=== PATIENT | male | born 1965 | race Hispanic/Latino ===

== ENCOUNTER 2023-01-25 00:50 | Emergency (ER) | payer OTHER ==
--- OUTSIDE RECORDS SUMMARY | 2023-01-25 00:55 | XMS REPORT | Continuity of Care Document ---
:1965 Author Organization [facility] t Address [address] [place] [address] [place] [id number] Care Team Providers Name Role Phone MICHEL MARTÍNEZ Primary Care Physician Unavailable GILLIAN BASILIO Attending Clinician Unavailable CATHY SOMMER Attending Clinician Unavailable [id number] Attending Clinician Unavailable CODEY BARCLAY Attending Clinician Unavailable SHILA QIU Attending Clinician Unavailable MARIBEL CHAPA Attending Clinician Unavailable [id number] Attending Clinician Unavailable Cathy Sommer MD Attending Clinician [phone] MIKE DOMINGUEZ Attending Clinician Unavailable OPAL WELLS Attending Clinician Unavailable Gillian Sims Attending Clinician Claudy West Attending Clinician NOELLE TOSCANO Attending Clinician Unavailable CLAUDY WINSTON Admitting Clinician Unavailable Payers Payer Name Policy Type Policy Number Effective Date Expiration Date S po AETNA 2 [id number] 2020 00:00:00 [employer] COMMERCIAL [id number] 2021 OUT OF NETWORK 00:00:00 Problems Condition Condition Condition Status Onset Resolution Last Treating Co mments Source Name Details Category Date Date Treatment Clinician Date DM type 2 DM type 2 Disease Active Johnathan gonzalez with with 3-26 Seybold diabetic diabetic 00:00: - mixed mixed 00 Externa hyperlipid hyperlipid l emia emia Type 2 Type 2 Disease Active Cuca diabetes diabetes 4-30 Seybol d mellitus, mellitus, 00:00: - with with 00 Externa long-term long-term l current current use of use of insulin insulin Essential Essential Disease Active Johnathan carlos hypertensi hypertensi 430 Se ybold on on 00:00: - 00 Externa l No known No known Disease Unive rs active active ity of problems problems [facility] Allergies, Adverse Reactions, Alerts Allergy Allergy Status Severity Reaction(s) Onset Inactive Treating Comm ents Source Name Type Date Date Clinician NO KNOWN Drug Active Univers ALLERGIE Class ity of S [facility] Social History Social Habit Start Date Stop Date Quantity Comments Source History SDOH Cuca atkins Alcohol Binge - External Exposure to Not sure Cuca nava SARS-CoV-2 (event) Gender identity Cuca betancur - External Sexual orientation Cuca Pena - External History SDOH Cuca atkins Alcohol Frequency - Exter nal History JADYNOH Cuca atkins Alcohol Std Drinks - Exte rnal Tobacco use and 2022-08-07 2022-08-07 Smokeless tobacco Ke chela Vasquezold exposure 00:00:00 00:00:00 non-user - External Alcohol intake 2022-08-07 2022-08-07 .57 /d Cuca romeo 00:00:00 00:00:00 - External Alcohol Comment 2020-07-15 2020-07-15 daily Cuca betancur 00:00:00 00:00:00 - External History of Social 2020-07-15 2020-07-15 Cuca Pena function 00:00:00 00:00:00 - External Sex [birth year] Cuca vicenteold 00:00:00 00:00:00 - External Smoking Status Start Date Stop Date Source Never smoked tobacco Cuca ruiz - External Unknown [facility] Ordered Filled Start Stop Current Ordering Indication Dosage Frequency Signature Comments Components Source Medication Medication Date Date Medication? Clinician (SIG) Name Name LISINOPRIL- Yes [id number] 1{tbl} Take 1 Cuca HCTZ 20-25 5-23 tablet by Seyb old MG oral 00:00: mouth - Tablet 00 daily Externa l Metformin Yes [id number] 1000mg Take 1 Cuca HCl 1000 MG 5-23 tablet Seybol d oral Tablet 00:00: (1,000 mg - 00 total) by Externa mouth in l the morning and 1 tablet (1,000 mg total) in the evening. Take with meals. Atorvastati Yes [id number] 40mg Take 1 Cuca n Calcium 5-23 tablet (40 Seyb old 40 MG oral 00:00: mg total) - Tablet 00 by mouth Externa daily l Lisinopril Yes [id number] 10mg Take 1 K elsey 10 MG oral 5-23 tablet (10 Sey bold Tablet 00:00: mg total) - 00 by mouth Externa daily Take l in addition with Lisinopril HCTZ 20-25 OZEMPIC 2022- No [id number] .25mg Inject Ke lsey (0.25 or 5-23 07-19 0.25 mg Seybold 0.5 00:00: 04:59 into the - mg/dose) 2 00 :00 skin once Exte rna mg/3 mL SQ a week l Solution Pen-Injecto r Lisinopril 2022- No [id number] 10mg Take 1 Cuca 10 MG oral 5-23 05-23 tablet (10 Se ybold Tablet 00:00: 00:00 mg total) - 00 :00 by mouth Externa daily Take l in addition with Lisinopril HCTZ 20-25 Tirzepatide 2022- No [id number] 10mg Inject 0.5 Cuca (Mounjaro) 1-27 05-23 mL (10 mg Sey bold 10 MG/0.5ML 00:00: 00:00 total) - subcutaneou 00 :00 into the Exte rna s Solution skin once l Pen-injecto a week r Empaglifloz Yes [id number] 1{tbl} Take 1 Cuca in 1-17 tablet by Seybold (Jardiance) 00:00: mouth - 25 MG oral 00 daily Externa Tablet l Hyoscyamine Yes [id number] .125mg Q4H Take 1 Cuca Sulfate 1-05 tablet Seybold 0.125 MG 00:00: (0.125 mg - oral Tablet 00 total) by Ext daniel mouth l every 4 hours as needed for cramping Hyoscyamine 0 2022- No [id number] .125mg Q4H Take 1 Cuca Sulfate 1-05 -23 tablet Seybold 0.125 MG 00:00: 00:00 (0.125 mg - oral Tablet 00 :00 total) by Ext daniel mouth l every 4 hours as needed for cramping Hyoscyamine 2022- No [id number] .125mg Q4H Take 1 Cuca Sulfate 1-05 -05 tablet Seybold 0.125 MG 00:00: 00:00 (0.125 mg - oral Tablet 00 :00 total) by Ext daniel mouth l every 4 hours as needed for cramping Cyclobenzap 2021-03 Yes [id number] 5mg Q.[id number] Take 1 Cuca rine HCl 5 2-14 [id number] tablet (5 Seybold MG oral 00:00: 3D mg total) - Tablet 00 by mouth 3 Externa times l daily as needed for muscle spasms Cyclobenzap 2021-03- No [id number] 5mg Q.[id number] Take 1 Cuca rine HCl 5 2-14 -23 [id number] tablet (5 Seybold MG oral 00:00: 00:00 3D mg total) - Tablet 00 :00 by mouth 3 Externa times l daily as needed for muscle spasms Celecoxib 2021-03 Yes [id number] 200mg Take 1 Cuca (CeleBREX) 2-09 capsule Seybol d 200 MG oral 00:00: (200 mg - Capsule 00 total) by Externa mouth 2 l times daily Celecoxib 2021-03 Yes [id number] 200mg Take 1 Cuca (CeleBREX) 2-09 capsule Seybol d 200 MG oral 00:00: (200 mg - Capsule 00 total) by Externa mouth 2 l times daily Celecoxib 2021-03- No [id number] 200mg Take 1 Cuca (CeleBREX) 04-26 capsule Seybo ld 200 MG oral 00:00: 00:00 (200 mg - Capsule 00 :00 total) by Externa mouth 2 l times daily Ozempic, 2 2021-03 Yes [id number] DIAL AND Cuca MG/DOSE, 2- INJECT Seybold subcutaneou 00:00: UNDER THE - s 00 SKIN 2 MG Externa WEEKLY l Ozempic, 2 2021-03 Yes [id number] DIAL AND Cuca MG/DOSE, 2- INJECT Seybold subcutaneou 00:00: UNDER THE - s 00 SKIN 2 MG Externa WEEKLY l Atorvastati 2021-03 Yes [id number] 40mg Take 1 Cuca n Calcium 1-07 tablet (40 Seyb old 40 MG oral 00:00: mg total) - Tablet 00 by mouth Externa daily l Atorvastati 2021-03 Yes [id number] 40mg Take 1 Cuca n Calcium 1-07 tablet (40 Seyb old 40 MG oral 00:00: mg total) - Tablet 00 by mouth Externa daily l Atorvastati 2021-03- No [id number] 40mg Take 1 Cuca n Calcium 1-07 -23 tablet (40 Sey bold 40 MG oral 00:00: 00:00 mg total) - Tablet 00 :00 by mouth Externa daily l Benzonatate 2021-03- No [id number] 200mg Q.[id number] Take 1 Cuca 200 MG oral 0-12 02-23 [id number] capsule Seybold Capsule 00:00: 00:00 3D (200 mg - 00 :00 total) by Externa mouth 3 l times daily as needed for cough Amoxicillin 2021-03 Yes [id number] 1{tbl} Take 1 Cuca -Pot 0-10 tablet by Seybold Clavulanate 00:00: mouth 2 - 875-125 MG 00 times Externa oral Tablet daily l Pseudoeph-B 2021-03 Yes [id number] 10mL Q.25D Take 10 mL Cuca romphen-DM 0-10 by mouth 4 Sey bold (Bromfed 00:00: times - DM) 30-2-10 00 daily as Exte rna MG/5ML oral needed l Syrup Amoxicillin 2021-03- No [id number] 1{tbl} Take 1 Cuca -Pot 0-10 02-23 tablet by Seybold Clavulanate 00:00: 00:00 mouth 2 - 875-125 MG 00 :00 times Externa oral Tablet daily l Pseudoeph-B 2021-03- No [id number] 10mL Q.25D Take 10 mL Cuca romphen-DM 10 02-23 by mouth 4 Se ybold (Bromfed 00:00: 00:00 times - DM) 30-2-10 00 :00 daily as Exte rna MG/5ML oral needed l Syrup Empaglifloz Yes [id number] 1{tbl} Take 1 Cuca in 25 MG 9-27 tablet by Seybol d oral Tablet 00:00: mouth - 00 daily Externa l Metformin Yes [id number] 1000mg Take 1 Cuca HCl 1000 MG 9-27 tablet Seybol d oral Tablet 00:00: (1,000 mg - 00 total) by Externa mouth in l the morning and 1 tablet (1,000 mg total) in the evening. Take with meals. Empaglifloz Yes [id number] 1{tbl} Take 1 Cuca in 25 MG 9-27 tablet by Seybol d oral Tablet 00:00: mouth - 00 daily Externa l Metformin Yes [id number] 1000mg Take 1 Cuca HCl 1000 MG 9-27 tablet Seybol d oral Tablet 00:00: (1,000 mg - 00 total) by Externa mouth in l the morning and 1 tablet (1,000 mg total) in the evening. Take with meals. Empaglifloz Yes [id number] 1{tbl} Take 1 Cuca in 25 MG 9-27 tablet by Seybol d oral Tablet 00:00: mouth - 00 daily Externa l Metformin Yes [id number] 1000mg Take 1 Cuca HCl 1000 MG 9-27 tablet Seybol d oral Tablet 00:00: (1,000 mg - 00 total) by Externa mouth in l the morning and 1 tablet (1,000 mg total) in the evening. Take with meals. Metformin 2022- No [id number] 1000mg Take 1 Cuca HCl 1000 MG 9-27 05-23 tablet Seybo ld oral Tablet 00:00: 00:00 (1,000 mg - 00 :00 total) by Externa mouth in l the morning and 1 tablet (1,000 mg total) in the evening. Take with meals. OZEMPIC (1 Yes [id number] 1mg Inject 1 Cuca mg/dose) 4 9-14 mg into Seybol d mg/3 mL SQ 00:00: the skin - Solution 00 once a Externa Pen-Injecto week l r Nystatin 2021- No [id number] Apply to Cuca [id number] 10-23 10-10 affected Seybold UNIT/GM 00:00: 00:00 area twice - apply 00 :00 daily Externa externally l Cream Fluconazole 2021- No [id number] 200mg Take 1 Cuca 200 MG oral 10-23 10-10 tablet Seybo ld Tablet 00:00: 00:00 (200 mg - 00 :00 total) by Externa mouth once l a week Continuous Yes [id number] USE K elsey Blood Gluc 8-05 DIRECTED Seybo ld Sensor 00:00: TO CHECK - (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 a Jens 14 BLOOD l Day Sensor) SUGAR EACH does not MORNING apply Misc Continuous Yes [id number] USE K elsey Blood Gluc 8-05 DIRECTED Seybo ld Sensor 00:00: TO CHECK - (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 a Jens 14 BLOOD l Day Sensor) SUGAR EACH does not MORNING apply Misc Continuous Yes [id number] USE K elsey Blood Gluc 8-05 DIRECTED Seybo ld Sensor 00:00: TO CHECK - (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 a Jens 14 BLOOD l Day Sensor) SUGAR EACH does not MORNING apply Misc Continuous Yes [id number] USE K elsey Blood Gluc 8-05 DIRECTED Seybo ld Sensor 00:00: TO CHECK - (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 a Jens 14 BLOOD l Day Sensor) SUGAR EACH does not MORNING apply Misc LISINOPRIL- Yes [id number] 1{tbl} Take 1 Cuca HCTZ 20-25 7-11 tablet by Seyb old MG oral 00:00: mouth - Tablet 00 daily Externa l LISINOPRIL- 0 Yes [id number] 1{tbl} Take 1 Cuca HCTZ 20-25 7-11 tablet by Seyb old MG oral 00:00: mouth - Tablet 00 daily Externa l LISINOPRIL- Yes [id number] 1{tbl} Take 1 Cuca HCTZ 20-25 7-11 tablet by Seyb old MG oral 00:00: mouth - Tablet 00 daily Externa l LISINOPRIL- 0 2022- No [id number] 1{tbl} Take 1 Cuca HCTZ 20-25 7-11 05-23 tablet by Sey bold MG oral 00:00: 00:00 mouth - Tablet 00 :00 daily Externa l Atorvastati 2021- No 40mg Take 1 Johnathan sey n Calcium 7-11 10-10 tablet (40 Sey bold 40 MG oral 00:00: 00:00 mg total) - Tablet 00 :00 by mouth Externa daily l Amoxicillin 2021- No 875mg Take 1 Ke lsey 875 MG oral 6-05 10-10 tablet Seybo ld Tablet 00:00: 00:00 (875 mg - 00 :00 total) by Externa mouth in l the morning and 1 tablet (875 mg total) in the evening. Insulin Yes [id number] Take 28 Johnathan sey Degludec 6-03 units Seybold (Tresiba 00:00: daily - FlexTouch) 00 Externa 200 UNIT/ML l subcutaneou s Solution Pen-injecto r Insulin Yes [id number] Take 28 Johnathan sey Degludec 6-03 units Seybold (Tresiba 00:00: daily - FlexTouch) 00 Externa 200 UNIT/ML l subcutaneou s Solution Pen-injecto r Insulin Yes [id number] Take 28 Johnathan sey Degludec 6-03 units Seybold (Tresiba 00:00: daily - FlexTouch) 00 Externa 200 UNIT/ML l subcutaneou s Solution Pen-injecto r Insulin Yes [id number] Take 28 Johnathan sey Degludec 6-03 units Seybold (Tresiba 00:00: daily - FlexTouch) 00 Externa 200 UNIT/ML l subcutaneou s Solution Pen-injecto r Benzonatate 0 Yes [id number] 100mg Q.[id number] Take 1 Cuca 100 MG oral 6-03 [id number] capsule Seybold Capsule 00:00: 3D (100 mg 00 total) by mouth 3 times daily as needed for cough Empaglifloz 2021-0 Yes [id number] 1{tbl} Take 1 Cuca in-metFORMI 6-03 tablet by Seclement bold N HCl 00:00: mouth in (Synjardy) 00 the 12.5-1000 morning MG oral and 1 Tablet tablet in the evening. LISINOPRIL- 0 Yes [id number] 1{tbl} Take 1 Cuca HCTZ 20-25 6-03 tablet by Seyb old MG oral 00:00: mouth Tablet 00 daily Insulin 0 Yes [id number] Take 28 Johnathan sey Degludec 6-03 units Seybold (Tresiba 00:00: daily FlexTouch) 00 200 UNIT/ML subcutaneou s Solution Pen-injecto r Dextrometho 0 Yes [id number] 10mL Q4H Take 10 mL Cuca rphan-guaiF 6-03 by mouth Seyb old ENesin 00:00: every 4 5-100 00 hours as MG/5ML oral needed for Liquid cough Lidocaine 2021-0 Yes [id number] Take 3 ml Cuca HCl 6-03 as needed Seybold (Lidocaine 00:00: every 4 Viscous 00 hours for HCl) 2 % sore mouth/throa throat. t Solution Benzonatate 0 2021- No [id number] 100mg Q.[id number] Take 1 Cuca 100 MG oral 6-03 10-10 [id number] capsule Seybold Capsule 00:00: 00:00 3D (100 mg - 00 :00 total) by Externa mouth 3 l times daily as needed for cough Dextrometho 2021-0 2021- No [id number] 10mL Q4H Take 10 mL Cuca rphan-guaiF 6-03 10-10 by mouth Sey bold ENesin 00:00: 00:00 every 4 - 5-100 00 :00 hours as Externa MG/5ML oral needed for l Liquid cough Lidocaine 2021- No [id number] Take 3 ml Cuca HCl 6-03 10-10 as needed Seybold (Lidocaine 00:00: 00:00 every 4 - Viscous 00 :00 hours for Externa HCl) 2 % sore l mouth/throa throat. 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 [employer] a Jens 2 times l [place]) daily does not (after apply meals) Device Continuous Yes [id number] 1{each} 1 each by Cuca Blood Gluc 6-01 does not Seybo ld Rn Vascular 00:00: apply - (FreeStyle 00 route 3 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 [employer] a Jens 2 times l [place]) daily does not (after apply meals) Device Continuous Yes [id number] Use as K elsey Blood Gluc 6-01 directed Seybo ld Sensor 00:00: to check (FreeStyle 00 fasting Jens 14 blood Day Sensor) sugar each does not morning apply Misc Continuous Yes [id number] 1{each} 1 each by Cuca Blood Gluc 6-01 does not Seybo ld Rn Vascular 00:00: apply (FreeStyle 00 route 3 Jens 2 times Hopkins) daily does not (after apply meals) Device OZEMPIC Yes [id number] .25mg Inject Johnathan sey (0.25 or 5-31 0.25 mg Seybold 0.5 00:00: into the mg/dose) 2 00 skin once mg/1.5 mL a week SQ Solution Pen-Injecto r Atorvastati 2021- No [id number] TAKE ONE Cuca n Calcium 08-15- TABLET BY Seyb old 40 MG oral 00:00: 00:00 MOUTH Tablet 00 :00 DAILY LISINOPRIL- 2021- No [id number] TAKE ONE Cuca HCTZ 08-15- TABLET BY Sey bold MG oral 00:00: 00:00 MOUTH Tablet 00 :00 DAILY Insulin 2021- No [id number] Take 24 Ke lsey Degludec 08-11- units Seybold (Tresiba 00:00: 00:00 daily FlexTouch) 00 :00 200 UNIT/ML subcutaneou s Solution Pen-injecto r Insulin 2021- No Inject Cuca Degludec 03-24 into the Seybol d (Tresiba 09:42: 00:00 skin FlexTouch) 03 :00 200 UNIT/ML subcutaneou s Solution Pen-injecto r Cyclobenzap Yes [id number] 10mg Q8H Take 1 Cuca rine HCl 10 - tablet (10 Se ybold MG oral 00:00: mg total) Tablet 00 by mouth every 8 hours as needed for muscle spasms Meloxicam Yes [id number] 7.5mg Take 1 Cuca 7.5 MG oral -07 tablet Seybol d Tablet 00:00: (7.5 mg 00 total) by mouth daily Cyclobenzap 2021-0 Yes [id number] 10mg Q.[id number] Take 1 Cuca rine HCl 10 - [id number] tablet (10 Seybold MG oral 00:00: 3D mg total) Tablet 00 by mouth every 8 hours as needed for muscle spasms Meloxicam 2021-0 Yes [id number] 7.5mg Take 1 Cuca 7.5 MG oral 1-07 tablet Seybol d Tablet 00:00: (7.5 mg 00 total) by mouth daily Cyclobenzap 2021- No [id number] 10mg Q.[id number] Take 1 Cuca rine HCl 10 -07 10-10 [id number] tablet (10 Seybold MG oral 00:00: 00:00 3D mg total) - Tablet 00 :00 by mouth Externa every 8 l hours as needed for muscle spasms Meloxicam 2021- No [id number] 7.5mg Take 1 Cuca 7.5 MG oral 1-07 10-10 tablet Seybo ld Tablet 00:00: 00:00 (7.5 mg - 00 :00 total) by Externa mouth l daily Insulin 0 Yes [id number] Take 24 Johnathan sey Degludec 9-21 units Seybold (Tresiba 00:00: daily FlexTouch) 00 200 UNIT/ML subcutaneou s Solution Pen-injecto r Empaglifloz Yes [id number] 1{tbl} Take 1 Cuca in-metFORMI 9-21 tablet by Sey bold N HCl 00:00: mouth 2 (Synjardy) 00 times 12.5-1000 daily MG oral Tablet Insulin Yes [id number] Take 24 Johnathan sey Degludec 9-21 units Seybold (Tresiba 00:00: daily FlexTouch) 00 200 UNIT/ML subcutaneou s Solution Pen-injecto r Empaglifloz Yes [id number] 1{tbl} Take 1 Cuca in-metFORMI 9-21 tablet by Sey bold N HCl 00:00: mouth 2 (Synjardy) 00 times 12.5-1000 daily MG oral Tablet Empaglifloz 2021- No [id number] 1{tbl} Take 1 Cuca in-metFORMI 9-21 06-03 tablet by Se ybold N HCl 00:00: 00:00 mouth 2 (Synjardy) 00 :00 times 12.5-1000 daily MG oral Tablet Benzonatate 0 Yes 100mg Q.[id number] Take 1 Cuca 100 MG oral 5-25 [id number] capsule Seybold Capsule 00:00: 3D (100 mg 00 total) by mouth 3 times daily as needed for cough Benzonatate 2020-0 Yes 100mg Q.[id number] Take 1 Cuca 100 MG oral 5-25 [id number] capsule Seybold Capsule 00:00: 3D (100 mg 00 total) by mouth 3 times daily as needed for cough Benzonatate 2020-0 2021- No 100mg Q.[id number] Take 1 Cuca 100 MG oral 5-25 06 [id number] capsule Seybold Capsule 00:00: 00:00 3D (100 mg 00 :00 total) by mouth 3 times daily as needed for cough Atorvastati Yes [id number] 40mg Take 1 Cuca n Calcium 4-30 tablet (40 Seyb old 40 MG oral 00:00: mg total) Tablet 00 by mouth daily LISINOPRIL- Yes [id number] 1{tbl} Take 1 Cuca HCTZ 20-25 4-30 tablet by Seyb old MG oral 00:00: mouth Tablet 00 daily Continuous Yes [id number] Use as K elsey Blood Gluc 4-30 directed Seybo ld Sensor 00:00: to check (FreeStyle 00 fasting Jens 14 blood Day Sensor) sugar each does not morning apply Misc Atorvastati Yes [id number] 40mg Take 1 Cuca n Calcium 4-30 tablet (40 Seyb old 40 MG oral 00:00: mg total) Tablet 00 by mouth daily LISINOPRIL- Yes [id number] 1{tbl} Take 1 Cuca HCTZ 20-25 4-30 tablet by Seyb old MG oral 00:00: mouth Tablet 00 daily Continuous Yes [id number] Use as K elsey Blood Gluc 4-30 directed Seybo ld Sensor 00:00: to check (FreeStyle 00 fasting Jens 14 blood Day Sensor) sugar each does not morning apply Misc Empaglifloz 2020- No [id number] 1{tbl} Take 1 Cuca in-metFORMI 07-15 tablet by Se ybold N HCl 00:00: 00:00 mouth 2 (Synjardy) 00 :00 times 12.5-1000 daily MG oral Tablet Insulin 2020- No [id number] Take 24 Ke lsey Degludec -15 12-21 units Seybold (Tresiba 00:00: 00:00 daily FlexTouch) 00 :00 200 UNIT/ML subcutaneou s Solution Pen-injecto r azithromyci 0 2019- No 500mg 500 mg, U nivers n 8 08-04 Oral, ity of (ZITHROMAX) 01:15: 00:45 [place]CE, 1 [place] 500 00 :00 dose, Mon Medi mima mg 10/19/19 at Branch 2015, KATARINA
Re ason for Anti-Infec tive: Documented Infection< br>Documen rin Infection Site: COVID
D uration of Therapy: Other (see Comments) empaglifloz 2019-0 Yes Take by Uni vers in-metformi 10-19 mouth 2 ity o f n 00:52: (two) [place] (SYNJARDY) 44 times Medical 5-1,000 mg daily. Branch Tab atorvastati 2019-0 Yes 20mg Take 20 mg Univers n 20 mg 10-19 by mouth ity of tablet 00:52: at [place] 44 bedtime. Medical Branch insulin 0 Yes inject Univers degludec 10-19 under the ity of (TRESIBA 00:52: skin. [place] FLEXTOUCH 44 Medical U-200 SC) Branch lisinopril- 2019-0 Yes 1{tbl} Take 1 Un bobbi hydrochloro 10-19 tablet by ity of thiazide 00:52: mouth [place] 10-12.5 mg 44 daily. Medical per tablet Branch acetaminoph 0 2020- No 1000mg 1,000 mg, Univers en 10-18- Oral, ity of (TYLENOL) 23:15: 23:01 ONCE, 1 [place] tablet 00 :00 dose, [facility] Medical 1,000 mg 10/19/19 at Branch 1815, KATARINA NaCl 0.9% 2020- No 1000mL at 999 Uni vers (NS) bolus 10-18 08- mL/hr, ity of infusion 22:15: 00:45 1,000 mL, [place] as 1,000 mL 00 :00 IV Medical Infusion, [place] ONCE, 1 dose, 10/19/19 at 1715, KATARINA azithromyci 2019-0 Yes [id number] Take 500 Univers n 8-03 mg day 1, ity of (ZITHROMAX 00:00: then 250 [place] as Z-AYSHA) 250 00 mg days 2 Medi mima mg tablet to 5. Branch Vital Signs Vital Name Observation Time Observation Value Comments Source Systolic blood 2022-08-07 19:10:00 150 mm[Hg] Cuca Seybold - pressure External Diastolic blood 2022-08-07 19:10:00 70 mm[Hg] Johnathanse y Seybold - pressure External Heart rate 2022-08-07 19:10:00 80 /min Cuca S eybold - External Body temperature 2022-08-07 19:10:00 36.11 Sana Kenzie ey Seybold - External Respiratory rate 2022-08-07 19:10:00 16 /min Kenzie ey Seybold - External Body height 2022-08-07 19:10:00 177.8 cm Cuca S eybold - External Body weight 2022-08-07 19:10:00 100.517 kg Cuca S eybold - External BMI 2022-08-07 19:10:00 31.80 kg/m2 Cuca Sheriff eybold - External Oxygen saturation in 2022-08-07 19:10:00 95 /min Cuca Seybold - Arterial blood by External Pulse oximetry Systolic blood 2022-03-22 22:26:00 138 mm[Hg] Cuca Seybold - pressure External Diastolic blood 2022-03-22 22:26:00 89 mm[Hg] Johnathanse y Seybold - pressure External Heart rate 2022-03-22 22:26:00 85 /min Cuca Sheriff eybold - External Body temperature 2022-03-22 22:26:00 36.94 Sana Kenzie ey Seybold - External Respiratory rate 2022-03-22 22:26:00 14 /min Kenzie ey Seybold - External Body height 2022-03-22 22:26:00 177.8 cm Cuca Sheriff eybold - External Body weight 2022-03-22 22:26:00 99.338 kg Cuca Sheriff eybold - External BMI 2022-03-22 22:26:00 31.42 kg/m2 Cuca Sheriff eybold - External Oxygen saturation in 2022-03-22 22:26:00 99 /min Cuca Seybold - Arterial blood by External Pulse oximetry Systolic blood 2022-02-23 15:11:00 120 mm[Hg] Cuca Seybold - pressure External Diastolic blood 2022-02-23 15:11:00 75 mm[Hg] Johnathanse y Seybold - pressure External Heart rate 2022-02-23 15:11:00 69 /min Cuca S eybold - External Body temperature 2022-02-23 15:11:00 36.61 Sana Kenzie ey Seybold - External Respiratory rate 2022-02-23 15:11:00 14 /min Kenzie ey Seybold - External Body height 2022-02-23 15:11:00 177.8 cm Cuca S eybold - External Body weight 2022-02-23 15:11:00 100.699 kg Cuca S eybold - External BMI 2022-02-23 15:11:00 31.85 kg/m2 Cuca S eybold - External Oxygen saturation in 2022-02-23 15:11:00 99 /min Cuca Seybold - Arterial blood by External Pulse oximetry Systolic blood 2021-12-25 14:32:00 124 mm[Hg] Cuca Seybold - pressure External Diastolic blood 2021-12-25 14:32:00 70 mm[Hg] Johnathan y Seybold - pressure External Heart rate 2021-12-25 14:32:00 96 /min Cuca S eybold - External Body temperature 2021-12-25 14:32:00 37 Sana Kenzie ey Seybold - External Respiratory rate 2021-12-25 14:32:00 16 /min Kenzie ey Seybold - External Body height 2021-12-25 14:32:00 177.8 cm Cuca S eybold - External Body weight 2021-12-25 14:32:00 97.977 kg Cuca S eybold - External BMI 2021-12-25 14:32:00 30.99 kg/m2 Cuca S eybold - External Body temperature 2021-08-18 15:03:00 37.06 Sana Kenzie ey Seybold Respiratory rate 2021-08-18 15:03:00 16 /min Kenzie ey Seybold Body height 2021-08-18 15:03:00 177.8 cm Cuca S eybold Body weight 2021-08-18 15:03:00 98.431 kg Cuca S eybold BMI 2021-08-18 15:03:00 31.14 kg/m2 Cuca S eybold Oxygen saturation in 2021-08-18 15:03:00 97 /min Cuca Seybold Arterial blood by Pulse oximetry Systolic blood 2021-08-18 15:03:00 170 mm[Hg] Cuca Seybold pressure Diastolic blood 2021-08-18 15:03:00 94 mm[Hg] Kelse y Seybold pressure Heart rate 2021-08-18 15:03:00 90 /min Cuca S eybold Systolic blood 2021-03-24 15:35:00 144 mm[Hg] Cuca Seybold pressure Diastolic blood 2021-03-24 15:35:00 76 mm[Hg] Kelse y Seybold pressure Heart rate 2021-03-24 15:35:00 100 /min Cuca S eybold Body temperature 2021-03-24 15:35:00 37.17 Sana Kenzie ey Seybold Respiratory rate 2021-03-24 15:35:00 16 /min Kenzie ey Seybold Body height 2021-03-24 15:35:00 177.8 cm Cuca S eybold Body weight 2021-03-24 15:35:00 100.699 kg Cuca S eybold BMI 2021-03-24 15:35:00 31.85 kg/m2 Cuca S eybold Systolic blood 2020-12-06 21:23:00 134 mm[Hg] Cuca Seybold pressure Diastolic blood 2020-12-06 21:23:00 82 mm[Hg] Kelse y Seybold pressure Heart rate 2020-12-06 21:23:00 93 /min Cuca S eybold Body temperature 2020-12-06 21:23:00 36.5 Sana Kenzie ey Seybold Respiratory rate 2020-12-06 21:23:00 20 /min Kenzie ey Seybold Body height 2020-12-06 21:23:00 177.8 cm Cuca S eybold Body weight 2020-12-06 21:23:00 96.888 kg Cuca S eybold BMI 2020-12-06 21:23:00 30.65 kg/m2 Cuca S eybold Systolic blood 2019-10-20 00:52:00 128 mm[Hg] Laquitaer lesli of pressure [facility] Diastolic blood 2019-10-20 00:52:00 84 mm[Hg] Unive rsity of pressure [facility] Heart rate 2019-10-20 00:52:00 101 /min Universi ty of [facility] Body temperature 2019-10-20 00:52:00 37.83 Sana Univ ersity of [facility] Respiratory rate 2019-10-20 00:52:00 23 /min Univ ersity of [facility] Oxygen saturation in 2019-10-20 00:52:00 96 /min University of Arterial blood by [facility] Pulse oximetry Branch Body height 2019-10-19 21:59:00 177.8 cm Universi ty of [facility] Body weight 2019-10-19 21:59:[address] [facility] BMI 2019-10-19 21:59:00 33.43 kg/m2 Universi ty [facility] Systolic blood 2019-10-20 00:52:00 128 mm[Hg] Univer sity of [facility] Diastolic blood 2019-10-20 00:52:00 84 mm[Hg] Unive rsity of [facility] Heart rate 2019-10-20 00:52:00 101 /min Universi ty of [facility] Body temperature 2019-10-20 00:52:00 37.83 Sana [facility] Respiratory rate 2019-10-20 00:52:00 23 /min [facility] Oxygen saturation in 2019-10-20 00:52:00 96 /min University of Arterial blood by [facility] Pulse oximetry Branch Body height 2019-10-19 21:59:[address] [facility] Body weight 2019-10-19 21:59:[address] [facility] BMI 2019-10-19 21:59:00 33.43 [facility] Date / Time Performed Performing Clinician Sourc e XR CHEST 1 VW COVID 2019-10-19 22:58:45 Claudy Winston [facility] LACTIC ACID WHOLE 2019-10-19 22:48:00 Claudy Winston [facility] COMP. METABOLIC PANEL 2019-10-19 22:47:00 Claudy Winston [facility] ([id number]) Medical Branch CBC WITH DIFF 2019-10-19 22:47:00 Claudy Winston [facility] COVID-19 (ID NOW 2019-10-19 22:47:00 Claudy Winston [facility] RAPID TESTING) Medical Branch CONSENT/REFUSAL FOR 2019-10-19 21:44:38 [facility] Branch TREATMENT Encounters Start End Encounter Admission Attending Care Care Encounter Source Date/Time Date/Time Type Type Clinicians Facility Department ID 2023-01-08 2023-01-08 Outpatient CUCA BASILIO [id number] Cuca 00:00:00 00:00:00 GILLIAN Seybol d 2022-12-10 2022-12-10 Outpatient CUCA SOMMER [id number] Cuca 00:00:00 00:00:00 CATHY Seybol elijah 2022-11-28 2022-11-28 Outpatient CUCA SOMMER [id number] Cuca 00:00:00 00:00:00 CATHY Seybol d 2022-11-14 2022-11-14 Outpatient CUCA SOMMER [id number] Cuca 00:00:00 00:00:00 CATHY Seybol d 2022-11-06 2022-11-06 Outpatient CUCA BASILIO [id number] Cuca 16:30:00 16:30:00 GILLIAN Seybol elijah 2022-11-01 2022-11-01 Outpatient CUCA BASILIO [id number] Cuca 14:30:00 14:30:00 GILLIAN Seybol d 2022-10-11 2022-10-11 Outpatient CUCA BASILIO [id number] Cuca 16:30:00 16:30:00 GILLIAN Seybol d 2022-10-05 2022-10-05 Outpatient LAB90 CUCA HOLM [id number] Cuca 08:10:00 08:10:00 Seybol d 2022-10-01 2022-10-01 Outpatient CUCA SOMMER [id number] Cuca 00:00:00 00:00:00 CATHY Seybol d 2022-09-25 2022-09-25 Outpatient CUCA BARCLAY [id number] Cuca 00:00:00 00:00:00 CODEY Seybol d 2022-09-25 2022-09-25 Outpatient ROSCUCA RAYMOND [id number] Cuca 00:00:00 00:00:00 CATHY Seybol d 2022-09-24 2022-09-24 Outpatient HUNDL, CUCA HOLM [id number] Cuca 00:00:00 00:00:00 GILLIAN Seybol d 2022-09-24 2022-09-24 Outpatient HUNDL, CUCA HOLM [id number] Cuca 00:00:00 00:00:00 GILLIAN Seybol d 2022-09-21 2022-09-21 Outpatient LAB90 CUCA HOLM [id number] Cuca 08:10:00 08:10:00 Seybol d 2022-09-11 2022-09-11 Outpatient LAZARUS SHILA HOLM [id number] Cuca 16:15:00 16:15:00 Seybol d 2022-09-10 2022-09-10 Outpatient AMMONLCUCA [id number] Cuca 16:30:00 16:30:00 GILLIAN Seybol d 2022-09-04 2022-09-04 Outpatient HUNDLCUCA [id number] Cuca 16:30:00 16:30:00 GILLIAN Seybol d 2022-09-01 2022-09-01 Outpatient CUCA CHAPA [id number] Cuca 00:00:00 00:00:00 MARIBEL Seybol d 2022-09-01 2022-09-01 Outpatient HUNDLCUCA [id number] Cuca 00:00:00 00:00:00 GILLIAN Seybol d 2022-08-07 2022-08-07 Outpatient HUNDL, CUCA HOLM [id number] Cuca 14:30:00 14:30:00 GILLIAN Seybol d 2022-07-11 2022-07-11 Outpatient CUCA SOMMER [id number] Cuca 00:00:00 00:00:00 CATHY Seybol d 2022-06-11 2022-06-11 Outpatient HUNDL, CUCA HOLM [id number] Cuca 08:30:00 08:30:00 GILLIAN Seybol d 2022-06-08 2022-06-08 Outpatient HUNDL, CUCA HOLM [id number] Cuca 00:00:00 00:00:00 GILLIAN Seybol d 2022-05-31 2022-05-31 Outpatient HUNDL, CUCA HOLM [id number] Cuca 00:00:00 00:00:00 GILLIAN Seybol d 2022-04-12 2022-04-12 Outpatient HUNDL, CUCA HOLM [id number] Cuca 00:00:00 00:00:00 GILLIAN Seybol d 2022-04-11 2022-04-11 Outpatient HUNDL, CUCA HOLM [id number] Cuca 00:00:00 00:00:00 GILLIAN Seybol d 2022-04-03 2022-04-03 Outpatient HUNDL, CUCA HOLM [id number] Cuca 00:00:00 00:00:00 GILLIAN Seybol d 2022-04-01 2022-04-01 Outpatient HUNDL, CUCA HOLM [id number] Cuca 00:00:00 00:00:00 GILLIAN Seybol d 2022-03-22 2022-03-22 Outpatient HUNDL, CUCA HOLM [id number] Cuca 16:30:00 16:30:00 GILLIAN Seybol d 2022-03-21 2022-03-21 Outpatient HUNDL, CUCA HOLM [id number] Cuca 00:00:00 00:00:00 GILLIAN Seybol d 2022-03-01 2022-03-01 Outpatient HUNDL, CUCA HOLM [id number] Cuca 00:00:00 00:00:00 GILLIAN Seybol d 2022-02-28 2022-02-28 Outpatient HUNDL, CUCA HOLM [id number] Cuca 00:00:00 00:00:00 GILLIAN Seybol d 2022-02-28 2022-02-28 Outpatient HUNDL, CUCA HOLM [id number] Cuca 00:00:00 00:00:00 GILLIAN Seybol d 2022-02-23 2022-02-23 Outpatient LAB90 CUCA HOLM [id number] Cuca 10:15:00 10:15:00 Seybol d 2022-02-23 2022-02-23 Outpatient ANTONIO CUCA HOLM [id number] Cuca 09:30:00 09:30:00 GILLIAN Seybol d 2022-02-23 2022-02-23 Outpatient ANTONIO CUCA HOLM [id number] Cuca 00:00:00 00:00:00 GILLIAN Seybol d 2022-02-19 2022-02-19 Outpatient ANTONIO CUCA HOLM [id number] Cuca 10:30:00 10:30:00 GILLIAN Seybol d 2022-01-19 2022-01-19 Outpatient HUNDDante CUCA HOLM [id number] Cuca 00:00:00 00:00:00 GILLIAN Seybol d 2022-01-15 2022-01-15 Outpatient ANTONIO CUCA HOLM [id number] Cuca 00:00:00 00:00:00 GILLIAN Seybol d 2021-12-27 2021-12-27 Outpatient ANTONIO CUCA HOLM [id number] Cuca 00:00:00 00:00:00 GILLIAN Seybol d 2021-12-25 2021-12-25 Outpatient QOX34-MMC CUCA HOLM [id number] Cuca 10:15:00 10:15:00 Seybol d 2021-12-25 2021-12-25 Outpatient AMMONDante CUCA HOLM [id number] Cuca 09:30:00 09:30:00 GILLIAN Seybol d 2021-11-29 2021-11-29 Outpatient ANTONIO CUCA HOLM [id number] Cuca 00:00:00 00:00:00 GILLIAN Seybol d 2021-11-27 2021-11-27 Outpatient LAB90 CUCA HOLM [id number] Cuca 08:50:00 08:50:00 Seybol d 2021-11-14 2021-11-14 Outpatient CUCA SOMMER [id number] Cuca 00:00:00 00:00:00 CATHY Seybol d 2021-10-23 2021-10-23 Office Shila Sommer [id number] Cuca 16:15:00 16:45:00 Visit Cathy Thibodeaux [id number] Se gypsy Scottogyi [id number] 2021-09-15 2021-09-15 Outpatient CUCA SOMMER [id number] Cuca 00:00:00 00:00:00 CATHY Seybol d 2021-08-30 2021-08-30 Outpatient R [facility] [id number] Univers 15:30:00 15:30:00 [id number] [facility] 2021-08-30 2021-08-30 Outpatient R ANGELICA [facility] [id number] Univers 15:30:00 15:30:00 MIKE amador [facility] 2021-08-20 2021-08-20 Outpatient CUCA WELLS [id number] Cuca 00:00:00 00:00:00 OPAL Seybol d 2021-08-18 2021-08-18 Office Shila Basilio [id number] Cuca 10:00:00 10:30:00 Visit Gillian Carlos Eduardo [id number] Se gypsy [id number] [id number] 2021-08-18 2021-08-18 Outpatient CUCA SOMMER [id number] Cuca 00:00:00 00:00:00 CATHY Seybol d 2021-08-18 2021-08-18 Outpatient CUCA SOMMER [id number] Cuca 00:00:00 00:00:00 CATHY Seybol d 2021-08-18 2021-08-18 Outpatient CUCA BASILIO [id number] Cuca 00:00:00 00:00:00 GILLIAN Seybol d 2021-08-15 2021-08-15 Outpatient CUCA BASILIO [id number] Cuca 00:00:00 00:00:00 GILLIAN Seybol d 2021-08-11 2021-08-11 Outpatient LAB90 CUCA HOLM [id number] Cuca 08:10:00 08:10:00 Seybol d 2021-08-11 2021-08-11 Outpatient ANTONIO CUCA HOLM [id number] Cuca 08:00:00 08:00:00 GILLIAN Seybol d 2021-06-29 2021-06-29 Outpatient ANTONIO CUCA HOLM [id number] Cuca 00:00:00 00:00:00 GILLIAN Seybol d 2021-06-28 2021-06-28 Outpatient ROS, CUCA HOLM [id number] Cuca 00:00:00 00:00:00 CATHY Seybol d 2021-03-24 2021-03-24 Office Shila Sommer [id number] Cuca 09:45:00 10:00:00 Visit Cathykarina Thibodeaux [id number] Se ybold Somogyi [id number] 2020-12-09 2020-12-09 Outpatient LAB90 CUCA HOLM [id number] Cuca 08:00:00 08:00:00 Seybol d 2020-12-06 2020-12-06 Office AmmonShila madison [id number] Cuca 16:21:49 16:51:49 Visit Gillian Thibodeaux [id number] Se ybold [id number] 2020-09-22 2020-09-22 Outpatient CUCA SOMMER [id number] Cuca 15:30:00 15:30:00 CATHY Seybol d 2019-10-19 2019-10-19 Emergency [facility] [id number] Univers 17:04:00 19:55:00 Claudy Sun 350.1.13.10 blanca Cabrera 4.2.7.2.686 [facility] [id number] [place] [id number] Branch 2019-10-19 2019-10-19 Emergency X [facility] ERT [id number] Univers 17:04:00 19:55:00 CLAUDY burroughs of [facility] 2019-10-19 2019-10-19 Emergency [place], [facility] [id number] 17:04:00 19:55:00 Claudy Sun [id number] [place] 4.2.7.2.686 [place] [id number] 2019-10-19 2019-10-19 Outpatient Jordan TOSCANO [facility] [id number] Univers 16:40:00 16:40:00 NOELLE burroughs of [facility] Results Test Description Test Time Test Results Result Source Comments Comments XR CHEST 1 VW Radiographic findings University of COVID 4 suspicious for [facility] 00:49:08 infection, including Bran ch COVID-19pneumonia. Disclaimer: Generally, the findings on chest imaging in COVID-19 are notspecific, and overlap with other infections, including influenza, H1N1,SARS and MERS.According to the Centers for Disease Control (CDC) and recent statement ofthe [employer], viral testing remains the only specificmethod of diagnosis. Confirmation with the viral test is required, even ifradiologic findings are suggestive of COVID-[address]. Preliminary Report Dictated by Resident: Ana Lilia Chapa MD., have reviewed this study and agree with the abovereport.EXAM: XR CHEST 1 VW COVID HISTORY: 54 years-old; Male; fever, covid exposure COMPARISON: None FINDINGS: Lungs/Pleura: Multifocal patchy airspace opacities, more prominent in theleft mid and lower lung zone. There is no pleural effusion or pneumothorax. Heart/Mediastinum: The cardiomediastinal silhouette is normal. No acute osseous structure abnormality. [facility], Radiant Results Inft User - 10/19/2019 7:50 PM CDTEXAM:XR CHEST 1 VW COVIDHISTORY: 54 years-old; Male; fever, covid exposure COMPARISON: NoneFINDINGS:Lungs/Ple ura: Multifocal patchy airspace opacities, more prominent in theleft mid and lower lung zone. There is no pleural effusion or pneumothorax.Heart/Med iastinum: The cardiomediastinal silhouette is normal.No acute osseous structure abnormality.IMPRESSION Radiographic findings suspicious for infection, including COVID-19pneumonia.Disc laimer: Generally, the findings on chest imaging in COVID-19 are notspecific, and overlap with other infections, including influenza, H1N1,SARS and MERS.According to the Centers for Disease Control (CDC) and recent statement ofthe [employer], viral testing remains the only specificmethod of diagnosis. Confirmation with the viral test is required, even ifradiologic findings are suggestive of COVID-[address]Preliminary Report Dictated by Resident: Minnie Cr, Ana Lilia Morse MD., have reviewed this study and agree with the abovereport. COVID-19 (ID NOW RAPID TESTING) 2019-10-19 23:17:00 Test Item Value Reference Range Interpretation Comme nts SARS-CoV-2 Rapid ID NOW (test code Positive Not Detected A = 29680-2) DIANNE (test code = DIANNE) ID NOW COVID-19 Assay is an isothermal nucleic acid amplification test intended for the qualitative detection of nucleic acid from SARS-CoV-2 viral RNA in nasopharyngeal (CUSTOM DESIGNER) specimens. It is used under Emergency Use Authorization (EUA) by FDA. The limit of detection (LOD) of the assay is 125 Genome Equivalents/mL. A positive result is indicative of the presence of SARS-CoV-2 RNA. ?Clinical correlation with patient history and other diagnostic information is necessary to determine patient infection status. A negative (Not Detected) result does not preclude SARS-CoV-2 infection. In patients with clinical symptoms and other tests that are consistent with SARS-CoV-2 infection, negative results should be treated as presumptive negative and a new specimen should be tested with alternative PCR molecular test. Invalid: Please collect a new specimen for repeat patient testing if clinically indicated. Lab Interpretation (test code = Abnormal 96685-2) [facility]. METABOLIC PANEL (42801)2019-10-19 23:12:00 Test Item Value Reference Range Interpretation Comments NA (test code = 137 mmol/L 135-145 3311448480) K (test code = 4.4 mmol/L 3.5-5 2406999592) CL (test code = 103 mmol/L 98-108 5546363998) CO2 TOTAL (test code = 23 mmol/L 23-31 3953270090) AGAP (test code = 2-16 4412371457) BUN (test code = 17 mg/dL 7-23 6821329227) GLUCOSE (test code = 101 mg/dL 70-110 1503645489) CREATININE (test code = 0.59 mg/dL 0.6-1.25 L 6468530991) TOTAL BILI (test code = 0.7 mg/dL 0.1-1.6 6468945116) CALCIUM (test code = 11.7 mg/dL 8.6-10.6 H 4647493322) T PROTEIN (test code = 8.2 g/dL 6.3-8.2 2701138231) ALBUMIN (test code = 4.5 g/dL 3.5-5 3751185974) ALK PHOS (test code = 75 U/L 34-122 2311355760) ALTv (test code = 38 U/L 5-50 1742-6) AST(SGOT) (test code = 39 U/L 13-40 5868059459) eGFR Calculation mL/min/1.73m2 (Non-) (test code = 5136057286) eGFR Calculation mL/min/1.73m2 () (test code = 6363473663) DIANNE (test code = DIANNE) Association of Glomerular Filtration Rate (GFR) and Staging of Kidney Disease* + --+ --+ ------+| GFR (mL/min/1.73 m2) ?| With Kidney Damage ?| ?Without Kidney Damage+ --------+ --------+ +| ?>90 ?| ?Stage one ?| ? Normal ?+ ---+ ---+ -------+| ?60-89 ?| ?Stage two ?| ? Decreased GFR ? + --+ --+ ------+| ?30-59 ?| ?Stage three ?| ? Stage three ? + --+ --+ ------+| ?15-29 ?| ?Stage four ? | ? Stage four ?+ ---+ ---+ -------+| ?<15 (or dialysis) ? ?| ?Stage five ? | ? Stage five ?+ ---+ ---+ -------+ *Each stage assumes the associated GFR level has been in effect for at least three months. ?Stages 1 to 5, with or without kidney disease, indicate chronic kidney disease. Notes: Determination of stages one and two (with eGFR >59mL/min/1.73 m2) requires estimation of kidney damage for at least three months as defined by structural or functional abnormalities of the kidney, manifested by either:Pathological abnormalities or Markers of kidney damage (including abnormalities in the composition of the blood or urine or abnormalities in imaging tests). Lab Interpretation Abnormal (test code = 57187-6) [facility] WITH [id number] 23:01:00 Test Item Value Reference Range Interpretation Comments WBC (test code = See_Comment [Automated 6690-2) message] The sy stem which generated this result transmitted reference range : 4.20 - 10.70 10*3/?L. The reference range was not used to interpret this result as normal/abnormal . RBC (test code = See_Comment [Automated 789-8) message] The sy stem which generated this result transmitted reference range : 4.26 - 5.52 10*6/?L. The reference range was not used to interpret this result as normal/abnormal . HGB (test code = 15.7 g/dL 12.2-16.4 718-7) HCT (test code = 47.0 % 38.4-49.3 4544-3) MCV (test code = 90.6 fL 81.7-95.6 787-2) MCH (test code = 30.3 pg 26.1-32.7 785-6) MCHC (test code = 33.4 g/dL 31.2-35 786-4) RDW-SD (test code = 38.7 fL 38.5-51.6 82233-0) RDW-CV (test code = 11.7 % 12.1-15.4 L 788-0) PLT (test code = See_Comment L [Automated 777-3) message] The sy stem which generated this result transmitted reference range : 150 - 328 10*3/ ?L. The reference r kevin was not used to interpret this result as normal/abnormal . MPV (test code = 11.7 fL 9.8-13 75189-9) IPF % (test code = 7.6 % 1.2-10.7 Platelet count 7298251111) measured by fluorescence method. NRBC/100 WBC (test See_Comment [Automat ed code = 2876411068) message] The system which generated this result transmitted reference range : 0.0 - 10.0 /100 WBCs. The refer ence range was not u sed to interpret th is result as normal/abnormal . NRBC x10^3 (test code <0.01 See_Comment [Auto mated = 7504466741) message] The s ystem which generated this result transmitted reference range : 10*3/?L. The reference range was not used to interpret this result as normal/abnormal . GRAN MAT (NEUT) % 81.2 % (test code = 770-8) IMM GRAN % (test code 0.40 % = 2403035171) LYMPH % (test code = 10.8 % 736-9) MONO % (test code = 7.4 % 5905-5) EOS % (test code = 0.0 % 713-8) BASO % (test code = 0.2 % 706-2) GRAN MAT x10^3(ANC) 4.15 10*3/uL 1.99-6.95 (test code = 3191470493) IMM GRAN x10^3 (test <0.03 0-0.06 code = 5882006079) LYMPH x10^3 (test code 0.55 10*3/uL 1.09-3.23 L = 731-0) MONO x10^3 (test code 0.38 10*3/uL 0.36-1.02 = 742-7) EOS x10^3 (test code = <0.03 0.06-0.53 L 711-2) BASO x10^3 (test code <0.03 0.01-0.09 = 704-7) Lab Interpretation Abnormal (test code = 84524-9) [id number] 22:53:00 Test Item Value Reference Range Interpretation Comments LACTIC ACID (test code = 1.14 mmol/L 5723200977) [facility]"
[2023-01-25] MEDS ORDERED: ACETAMINOPHEN 500 MG TAB ONE (01:58)
--- NOTE | 2023-01-25 03:36 | EDPHYS ---
Physician Documentation [facility] Name: Torin Waldron Jr Age: 57 yrs Sex: Male : 1965 Arrival Date: 01/25/2023 Time: 00:50 Bed 20 Private MD: ED Physician Keyon Bautista HPI: 01/25 02:16 This 57 yrs old Male presents to ER via Ambulatory with complaints of Fall rt Injury, Head Injury Without LOC-Adult. 02:16 Patient presents to the ED with a slip and fall. Denies near syncope, loss of rt conscious. Patient hit the back of his head on concrete. Reports pain to the right side of his neck. Reports a headache. Denies any bleeding. Denies other acute complaints at this time, symptoms are aching nature, nonradiating, moderate severity, no other aggravating alleviating factors.. Historical: - Allergies: 01:23 No Known Allergies; vc1 - Home Meds: 01:23 Ozempic 2 mg/dose (8 mg/3 mL) subcutaneous Pen Injector 2 mg every week [Active]; vc1 atorvastatin 40 mg oral tablet [Active]; lisinopril 20 mg Oral tablet [Active]; Jardiance 25 mg oral tablet [Active]; metformin 1,000 mg Oral tablet 2 times per day [Active]; Tresiba FlexTouch U-200 200 unit/mL (3 mL) subcutaneous Insulin Pen daily [Active]; - PMHx: 01:23 Diabetes mellitus; Hypertensive disorder; vc1 - PSHx: 01:23 inguinal hernia; left eye; vc1 - Immunization history: Last tetanus immunization: - up to date. - Social history:: Smoking status: Patient denies any tobacco usage or history of. Patient uses alcohol, on a daily basis. - Family history:: not pertinent. ROS: 02:16 Constitutional: Negative for fever, chills, and weight loss, Cardiovascular: Negative rt for chest pain, palpitations, and edema, Respiratory: Negative for shortness of breath, cough, wheezing, and pleuritic chest pain, Abdomen/GI: Negative for abdominal pain, nausea, vomiting, diarrhea, and constipation, Back: Negative for injury and pain, MS/Extremity: Negative for injury and deformity, Skin: Negative for injury, rash, and discoloration, Psych: Negative for depression, anxiety, suicide ideation, homicidal ideation, and hallucinations, 02:16 Neck: Positive for pain with movement, pain at rest, 02:16 Neuro: Positive for headache, Negative for loss of consciousness, Exam: 02:16 Constitutional: This is a well developed, well nourished patient who is awake, alert, rt and in no acute distress. Head/Face: Normocephalic, atraumatic. Chest/axilla: Normal chest wall appearance and motion. Nontender with no deformity. No lesions are appreciated. Cardiovascular: Regular rate and rhythm with a normal S1 and S2. No gallops, murmurs, or rubs. Normal PMI, no JVD. No pulse deficits. Respiratory: Lungs have equal breath sounds bilaterally, clear to auscultation and percussion. No rales, rhonchi or wheezes noted. No increased work of breathing, no retractions or nasal flaring. Abdomen/GI: Soft, non-tender, with normal bowel sounds. No distension or tympany. No guarding or rebound. No evidence of tenderness throughout. Skin: Warm, dry with normal turgor. Normal color with no rashes, no lesions, and no evidence of cellulitis. MS/ Extremity: Pulses equal, no cyanosis. Neurovascular intact. Full, normal range of motion. Neuro: Awake and alert, GCS 15, oriented to person, place, time, and situation. Cranial nerves II-XII grossly intact. Motor strength 5/5 in all extremities. Sensory grossly intact. Cerebellar exam normal. Normal gait. Psych: Awake, alert, with orientation to person, place and time. Behavior, mood, and affect are within normal limits. 02:16 Neck: Mild tenderness to the right paraspinal region, no midline tenderness, no step-offs, Vital Signs: 01:19 BP 140 / 88; Pulse 90; Resp 17 S; Temp 98.1(O); Pulse Ox 96% on R/A; Weight 97.52 kg vc1 (R); Height 5 ft. 10 in. (R); Pain 5/10; 03:13 BP 148 / 80; Pulse 76; Resp 13; Pulse Ox 100% ; vc1 03:41 BP 136 / 77; Pulse 71; Resp 16; Temp 98; Pulse Ox 99% on R/A; rv 01:19 Body Mass Index 30.85 (97.52 kg, 177.8 cm) vc1 01:19 Pain Scale: Adult vc1 Anna Coma Score: 01:19 Eye Response: spontaneous(4). Motor Response: obeys commands(6). Verbal Response: vc1 oriented(5). Total: 15. Trauma Score (Adult): 01:19 Eye Response: spontaneous(1); Verbal Response: oriented(1); Motor Response: obeys vc1 commands(2); Systolic BP: > 89 mm Hg(4); Respiratory Rate: 10 to 29 per min(4); Vinton Score: 15; Trauma Score: 12 MDM: 01:19 Patient medically screened. rt 03:36 Differential diagnosis: closed head injury, contusion. Data reviewed: vital signs, rt nurses notes, radiologic studies. Independent interpretation of the following test(s) in the Emergency Department CT Scan: My interpretation is No hemorrhage seen on interpretation of CT scan images. Counseling: I had a detailed discussion with the patient and/or guardian regarding the historical points, exam findings, and any diagnostic results supporting the discharge/admit diagnosis, lab results, radiology results, the need for outpatient follow up. Response to treatment: the patient's symptoms have markedly improved after treatment. 01/25 01:24 Order name: CT Head C Spine rt Administered Medications: 01:48 Drug: Acetaminophen PO 1000 mg PO once Route: PO; vc1 03:41 Follow up: Response: No adverse reaction rv Disposition Summary: 01/25/23 03:35 Discharge Ordered Notes: Location: Home rt Problem: new rt Symptoms: have improved rt Condition: Stable rt Diagnosis - Mechanical fall rt - Scalp contusion rt Followup: rt - With: Private Physician - When: 2 - 3 days - Reason: Discharge Instructions: - Discharge Summary Sheet rt - Fall Prevention in the Home, Adult rt Forms: - Medication Reconciliation Form rt - Thank You Letter rt - Antibiotic Education rt - Prescription Opioid Use rt - Patient Portal Instructions rt - Leadership Thank You Letter rt Signatures: Dispatcher [employer] Preeti Ramirez RN RN vc1 Keyon Bautista MD MD rt Trent Rodriguez RN rv
--- NOTE | 2023-01-25 03:36 | ER ---
Nurse's Notes [facility] Name: Torin Waldron Jr Age: 57 yrs Sex: Male : 1965 Arrival Date: 01/25/2023 Time: 00:50 Bed 20 Private MD: Diagnosis: Mechanical fall;Scalp contusion Presentation: 01/25 01:19 Chief complaint: Patient states: slipped and fell backwards hitting back of head. vc1 denies LOC. pain to back of head and neck. pain 5/10. Care prior to arrival: None. Mechanism of Injury: Fall. Trauma event details: Injury occurred in the [facility]. 01:19 Acuity: HARLEY 3 vc1 01:19 Method Of Arrival: Ambulatory vc1 01:23 Coronavirus screen: Client denies travel out of the [place] in the last 14 days. At this vc1 time, the client does not indicate any symptoms associated with coronavirus-19. Ebola Screen: No symptoms or risks identified at this time. Initial Sepsis Screen: Does the patient meet any 2 criteria? No. Patient's initial sepsis screen is negative. Does the patient have a suspected source of infection? No. Patient's initial sepsis screen is negative. Risk Assessment: Do you want to hurt yourself or someone else? Patient reports no desire to harm self or others. Onset of symptoms was January 25, 2023. Trauma Activation: Not Applicable Physician: ED Physician; Name: ; Notified At: ; Arrived At: Physician: General Surgeon; Name: ; Notified At: ; Arrived At: Physician: Radiology; Name: ; Notified At: ; Arrived At: Physician: Respiratory; Name: ; Notified At: ; Arrived At: Physician: Lab; Name: ; Notified At: ; Arrived At: Historical: - Allergies: : No Known Allergies; vc1 - Home Meds: :23 Ozempic 2 mg/dose (8 mg/3 mL) subcutaneous Pen Injector 2 mg every week [Active]; vc1 atorvastatin 40 mg oral tablet [Active]; lisinopril 20 mg Oral tablet [Active]; Jardiance 25 mg oral tablet [Active]; metformin 1,000 mg Oral tablet 2 times per day [Active]; Tresiba FlexTouch U-200 200 unit/mL (3 mL) subcutaneous Insulin Pen daily [Active]; - PMHx: 01:23 Diabetes mellitus; Hypertensive disorder; vc1 - PSHx: 01:23 inguinal hernia; left eye; vc1 - Immunization history: Last tetanus immunization: - up to date. - Social history:: Smoking status: Patient denies any tobacco usage or history of. Patient uses alcohol, on a daily basis. - Family history:: not pertinent. Screenin:19 Abuse screen: Denies threats or abuse. Denies injuries from another. Tuberculosis vc1 screening: No symptoms or risk factors identified. 03:13 [facility] ED Fall Risk Assessment (Adult) History of falling in the last 3 months, vc1 including since admission No falls in past 3 months (0 pts) Confusion or Disorientation No (0 pts) Intoxicated or Sedated No (0 pts) Impaired Gait No (0 pts) Mobility Assist Device Used No (0 pt) Altered Elimination No (0 pt) Score/Fall Risk Level 0 - 2 = Low Risk Oriented to surroundings, Maintained a safe environment, Educated pt \T\ family on fall prevention, incl call for assistance when getting out of bed. Nutritional screening: No deficits noted. Primary Survey: NO uncontrolled hemorrhage observed. A: The client is awake and alert. The airway is vc1 patent. The client is alert. Breathing/Chest: Spontaneous respiratory effort, equal unlabored respirations, breath sounds clear bilaterally, regular pattern, symmetrical chest rise and fall. Respiratory effort: spontaneous. Circulation: No external hemorrhage present. Regular and strong central pulse, skin warm/dry/normal color. Disability Pupils are equal, round, reactive to light and accommodation. Client is alert. Client responds to verbal stimuli. Exposure/Environment: All clothing and personal items were removed. Forensic evidence collection is not deemed to be indicated at this time. Items placed in patient belonging bag. Assessment: :19 General: Appears in no apparent distress. comfortable, Behavior is calm, cooperative. vc1 Pain: Complains of pain in back of head and back of neck Pain currently is 5 out of 10 on a pain scale. Neuro: No deficits noted. Morales Agitation-Sedation Scale (RASS): 0 - Alert and Calm Level of Consciousness is awake, alert, obeys commands, Oriented to person, place, time, situation. EENT: No deficits noted. No signs and/or symptoms were reported regarding the EENT system. Cardiovascular: No deficits noted. Denies chest pain, shortness of breath, Capillary refill < 3 seconds Clubbing of nail beds is absent JVD is absent Patient's skin is warm and dry. Respiratory: No deficits noted. Airway is patent Respiratory effort is even, unlabored, Respiratory pattern is regular, symmetrical. GI: No deficits noted. No signs and/or symptoms were reported involving the gastrointestinal system. : No deficits noted. No signs and/or symptoms were reported regarding the genitourinary system. Derm: No deficits noted. No signs and/or symptoms reported regarding the dermatologic system. Skin is intact, is healthy with good turgor, Skin is dry, Skin is normal, Skin temperature is warm. Musculoskeletal: No deficits noted. No signs and/or symptoms reported regarding the musculoskeletal system. Circulation, motion, and sensation intact. Range of motion: intact in all extremities. 03:13 Reassessment: No changes from previously documented assessment. Patient and/or family vc1 updated on plan of care and expected duration. Pain level reassessed. Patient is alert, oriented x 3, equal unlabored respirations, skin warm/dry/pink. Vital Signs: 01:19 BP 140 / 88; Pulse 90; Resp 17 S; Temp 98.1(O); Pulse Ox 96% on R/A; Weight 97.52 kg vc1 (R); Height 5 ft. 10 in. (R); Pain 5/10; 03:13 BP 148 / 80; Pulse 76; Resp 13; Pulse Ox 100% ; vc1 03:41 BP 136 / 77; Pulse 71; Resp 16; Temp 98; Pulse Ox 99% on R/A; rv 01:19 Body Mass Index 30.85 (97.52 kg, 177.8 cm) vc1 01:19 Pain Scale: Adult vc1 Anna Coma Score: 01:19 Eye Response: spontaneous(4). Motor Response: obeys commands(6). Verbal Response: vc1 oriented(5). Total: 15. Trauma Score (Adult): 01:19 Eye Response: spontaneous(1); Verbal Response: oriented(1); Motor Response: obeys vc1 commands(2); Systolic BP: > 89 mm Hg(4); Respiratory Rate: 10 to 29 per min(4); Anna Score: 15; Trauma Score: 12 ED Course: 00:54 Patient arrived in ED. [id number] 00:58 Keyon Bautista MD is Attending Physician. rt 01:19 Patient has correct armband on for positive identification. Placed in gown. Bed in low vc1 position. Call light in reach. Side rails up X 1. Patient maintains SpO2 saturation greater than 95% on room air. 01:19 Patient maintains SpO2 saturation greater than 95% on room air. vc1 01:20 Triage completed. vc1 01:23 Arm band placed on right wrist. vc1 01:48 Preeti Lomas, RN is Primary Nurse. vc1 02:11 CT Head C Spine In Process Unspecified. EDMS 03:12 No provider procedures requiring assistance completed. Patient did not have IV access vc1 during this emergency room visit. Administered Medications: 01:48 Drug: Acetaminophen PO 1000 mg PO once Route: PO; vc1 03:41 Follow up: Response: No adverse reaction rv Medication: 03:13 VIS not applicable for this client. vc1 Outcome: 03:35 Discharge ordered by MD. rt 03:41 Discharged to home ambulatory, with family, rv 03:41 Condition: good 03:41 Discharge instructions given to patient, family, Instructed on discharge instructions, follow up and referral plans. Demonstrated understanding of instructions, follow-up care, 03:41 Discharged to home ambulatory, with significant other, vc1 03:41 Condition: good 03:41 Discharge instructions given to patient, Instructed on discharge instructions, follow up and referral plans. Demonstrated understanding of instructions, follow-up care, 03:42 Patient left the ED. rv Signatures: Dispatcher [employer] EDMT Trent Rodriguez RN RN rv Aurea Arroyo [id number] Preeti Lomas, MARISOL RN vc1 Keyon Bautista MD MD rt
[2023-01-25 03:49] VITALS: BP 136/77; TEMP 98; O2SAT 99
--- NOTE | 2023-01-25 13:34 | RAD REPORT ---
EXAM DESCRIPTION: CT HEAD AND CERVICAL SPINE WITHOUT CONTRAST CLINICAL HISTORY: Fall COMPARISON: None. 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 FINDINGS: Brain: There is no acute hemorrhage, mass effect or midline shift. Johns-white differentiat ion is preserved. There is no hydrocephalus. There is no significant volume loss for age. The calvarium is intact. Orbits and globes are unremarkable. The paranasal sinuses are clear. Mastoid air cells are clear. Cervical Spine: There is no acute fracture. Alignment is anatomic. There is mild narrowing of the C5-6 disc. Vertebral body heights are preserved. Soft tissues are unre markable. IMPRESSION: No acute postraumatic findings. Electronically signed by: Pantera Romero MD 01/25/2023 03:27 AM SURFACE LOGGING SYSTEMS LOGGER Due to temporary technical issues with the PACS/Fluency reporting system, reports are being signed by the in house radiologists without review as a courtesy to insure prompt reporting. The interpreting radiologist is fully responsible for the content of the report.
== END 2023-01-25 03:42 | disposition home or self-care (01) ==
LOC: ER 00:50
DX: S00.03XA Contusion of scalp, initial encounter (principal); R55 Syncope and collapse; W01.198A Fall on same level from slipping, tripping and stumbling with subsequent striking against other object, initial encounter; E11.9 Type 2 diabetes mellitus without complications; I10 Essential (primary) hypertension; Z79.4 Long term (current) use of insulin
CPT/HCPCS: 70450; 72125; 99284